=== PATIENT | female | born 1970 | race Caucasian/White ===

== ENCOUNTER 2018-05-06 10:21 | Emergency (ER) | payer BC ==
[2018-05-06] MEDS ORDERED: Phenazopyridine 200 MG Tab PO ONE (10:41)
--- NOTE | 2018-05-06 10:44 | EDM.PDOC ---
ED HPI GENERAL MEDICAL PROBLEM - General Chief Complaint: Genitourinary Problem Stated Complaint: UTI Time Seen by Provider: 05/06/18 10:24 Source of Information: Reports: Patient History Limitations: Reports: No Limitations - History of Present Illness INITIAL COMMENTS - FREE TEXT/NARRATIVE: HISTORY AND PHYSICAL: History of present illness: Patient is a 37-year-old female who presents to the ED today with concern of dysuria, urinary frequency x 2 days. Patient states she does have a history of UTI's. Patient states the pain of this is a 9 out of 10 which is unusual for her other urinary tract infections. Patient states she also has 9/10 abdominal pain and left-sided back pain. Patient states she feels as if she has had fever and chills but has not checked her temperature at home. Patient denies vaginal discharge, pain with intercourse, or abnormal vaginal bleeding, or new sexual partners. Patient denies fever, chills, cough. Denies headache, neck stiff ness, change in vision, syncope, or near syncope. Denies nausea, vomiting, abdominal pain, diarrhea, constipation. Has not noted any blood in urine or stool. Patient has been eating and drinking appropriately. Review of systems: As per history of present illness and below otherwise all systems reviewed and negative. Past medical history: As per history of present illness and as reviewed below otherwise noncontributory. Surgical history: As per history of present illness and as reviewed below otherwise noncontributory. Social history: See social history for further information Family history: As per history of present illness and as reviewed below otherwise noncontributory. Physical exam: General: Patient is alert, oriented, and in no acute distress. She is sitting comfortably on exam table. HEENT: Atraumatic, normocephalic, pupils equal and reactive bilaterally, negative for conjunctival pallor or scleral icterus, mucous membranes moist, TMs normal bilaterally, throat clear, neck supple, nontender, trachea midline. No drooling or trismus noted. No meningeal signs. No hot potato voice noted. Lungs: Clear to auscultation, breath sounds equal bilaterally, chest nontender. Heart: S1S2, regular rate and rhythm without overt murmur Abdomen: Moderate pain to palpation over the suprapubic region. Otherwise, soft , nondistended. Negative for masses or hepatosplenomegaly. Positive for costovertebral tenderness on the left. Pelvis: Stable nontender. Genitourinary: Deferred. Rectal: Deferred. Skin: Intact, warm, dry. No lesions or rashes noted. Extremities: Atraumatic, negative for cords or calf pain. Neurovascular unremarkable. Neuro: Awake, alert, oriented. Cranial nerves II through XII unremarkable. Cerebellum unremarkable. Motor and sensory unremarkable throughout. Exam nonfocal. Notes: Will do labs and imaging today. Abd/pelvic CT shows no hydronephrosis or obstructing renal calculi. Urinary bladder decompressed with bladder wall thickening likely related to decompress bladder and/or related to cystitis. No acute findings in the abdomen and pelvis. Small left lower lobe pulmonary nodules. Urine analysis does show signs of urinary tract infection. Along with patients left sided back pain, will treat for pyelonephritis. Patients remaining labs and vitals today are reassuring Discussed these findings with patient and the need for follow up with nodules in lungs. Offered patient admission but she does decline and will return as discussed. Supportive care measures were reviewed and discussed. Voices understanding and is agreeable to plan of care. Denies any further questions or concerns at this time. Diagnostics: UA, CBC, CMP, abd/pelvic CT, urine hcg Therapeutics: Pyridium, Saline, Toradol Prescription: Ciprofloxacin, Pyridium, [place] #10 Impression: Pyelonephritis Plan: 1. Take medication as prescribed. You can use ibuprofen or Tylenol as directed for pain and discomfort. 2. Follow-up with your primary care provider as discussed. Follow up with findings of nodule in lungs with your primary care provider. 3. Return to ED as needed and as discussed. Definitive disposition and diagnosis as appropriate pending reevaluation and review of above. Bladder Pain Score (Numeric/FACES): 7 - Related Data Allergies Allergy/AdvReac Type Severity Reaction Status Date / Time estradiol [From Estrace] Allergy Hypertensio Verified 05/06/18 10:34 n megestrol acetate Allergy Slurred Verified 05/06/18 10:34 [From Megace] Speech morphine Allergy Shortness Verified 05/06/18 10:34 of Breath Penicillins Allergy Rash Verified 05/06/18 10:34 pregabalin [From Lyrica] Allergy Shortness Verified 05/06/18 10:34 of Breath bananas Allergy Swelling Uncoded 05/06/18 10:34 kiwi Allergy Swelling Uncoded 05/06/18 10:34 Home Meds: Home Meds traZODone 1 tab PO DAILY 09/29/13 [History] Non-Formulary Medication [NF Drug] 4.5 mg PO DAILY 05/06/18 [History] Topiramate [Topamax] 100 mg PO BID 05/06/18 [History] ED ROS GENERAL - Review of Systems Review Of Systems: ROS reveals no pertinent complaints other than HPI. ED EXAM, RENAL/ - Physical Exam Exam: See Below (see dictation) Course - Vital Signs Last Recorded V/S: Last Vital Signs Temp 36.0 C 05/06/18 10:32 Pulse 97 05/06/18 10:32 Resp 18 05/06/18 10:32 BP 111/87 05/06/18 10:32 Pulse Ox 97 05/06/18 10:32 - Orders/Labs/Meds Orders: Active Orders 24 hr Category Date Time Status CULTURE URINE [RM] Stat Lab 05/06/18 10:23 Received HCG QUALITATIVE,URINE [URCHEM] Stat Lab 05/06/18 10:55 Ordered Labs: Laboratory Tests 05/06/18 05/06/18 05/06/18 Range/Units 10:23 11:03 11:03 WBC 5.10 (4.0-11.0) K/uL RBC 4.43 (4.30-5.90) M/uL Hgb 12.1 (12.0-16.0) g/dL Hct 38.1 (36.0-46.0) % MCV 86.0 (80.0-98.0) fL MCH 27.3 (27.0-32.0) pg MCHC 31.8 (31.0-37.0) g/dL RDW Std Deviation 42.7 (28.0-62.0) fl RDW Coeff of Wally 14 (11.0-15.0) % Plt Count 183 (150-400) K/uL MPV 12.60 H (7.40-12.00) fL Neut % (Auto) 57.9 (48.0-80.0) % Lymph % (Auto) 32.0 (16.0-40.0) % [place] % (Auto) 7.5 (0.0-15.0) % Eos % (Auto) 1.8 (0.0-7.0) % Baso % (Auto) 0.8 (0.0-1.5) % Neut # (Auto) 3.0 (1.4-5.7) K/uL Lymph # (Auto) 1.6 (0.6-2.4) K/uL [place] # (Auto) 0.4 (0.0-0.8) K/uL Eos # (Auto) 0.1 (0.0-0.7) K/uL Baso # (Auto) 0.0 (0.0-0.1) K/uL Nucleated RBC % 0.0 /100WBC Nucleated RBCs # 0 K/uL Sodium 142 (136-145) mmol/L Potassium 3.9 (3.5-5.1) mmol/L Chloride 109 H (98-107) mmol/L Carbon Dioxide 21.6 (21.0-32.0) mmol/L BUN 12 (7.0-18.0) mg/dL Creatinine 1.0 (0.6-1.0) mg/dL Est Cr Clr Drug Dosing 65.11 mL/min Estimated GFR (MDRD) 59.4 ml/min Glucose 96 (74-106) mg/dL Calcium 9.0 (8.5-10.1) mg/dL Total Bilirubin 0.4 (0.2-1.0) mg/dL AST 17 (15-37) IU/L ALT 23 (14-63) IU/L Alkaline Phosphatase 70 (46-116) U/L Total Protein 7.5 (6.4-8.2) g/dL Albumin 3.8 (3.4-5.0) g/dL Globulin 3.7 (2.6-4.0) g/dL Albumin/Globulin Ratio 1.0 (0.9-1.6) Urine Color YELLOW Urine Appearance CLEAR Urine pH 7.0 (5.0-8.0) Ur Specific [place] <= 1.005 (1.001-1.035) Urine Protein NEGATIVE (NEGATIVE) mg/dL Urine Glucose (UA) NEGATIVE (NEGATIVE) mg/dL Urine Ketones NEGATIVE (NEGATIVE) mg/dL Urine Occult Blood NEGATIVE (NEGATIVE) Urine Nitrite POSITIVE H (NEGATIVE) Urine Bilirubin NEGATIVE (NEGATIVE) Urine Urobilinogen 0.2 (<2.0) EU/dL Ur Leukocyte Esterase TRACE H (NEGATIVE) Urine RBC 1-2 (0-2/HPF) Urine WBC 1-2 (0-5/HPF) Ur Epithelial Cells RARE (NONE-FEW) Urine Bacteria FEW (NEGATIVE) Meds: Medications Discontinued Medications Generic Name Dose Route Start Last Admin Trade Name Dot PRN Reason Stop Dose Admin Sodium Chloride 1,000 mls @ 999 mls/hr 05/06/18 10:55 05/06/18 11:11 Normal Saline IV 05/06/18 11:55 999 mls/hr STAT ONE Administration Ketorolac Tromethamine 30 mg 05/06/18 10:55 05/06/18 11:10 Toradol IVPUSH 05/06/18 10:56 30 mg ONETIME ONE Administration Phenazopyridine HCl 200 mg 05/06/18 10:41 05/06/18 10:46 Pyridium PO 05/06/18 10:42 200 mg ONETIME ONE Administration Departure - Departure Time of Disposition: 12:37 Disposition: Home, Self-Care 01 Clinical Impression: Pyelonephritis - Discharge Information Instructions: Urinary Tract Infection, Adult, [id number] Referrals: Lauro Rosa MD [Primary Care Provider] - Forms: ED Department Discharge Additional Instructions: The following information is given to patients seen in the emergency department who are being discharged to home. This information is to outline your options for follow-up care. We provide all patients seen in our emergency department with a follow-up referral. The need for follow-up, as well as the timing and circumstances, are variable depending upon the specifics of your emergency department visit. If you don't have a primary care physician on staff, we will provide you with a referral. We always advise you to contact your personal physician following an emergency department visit to inform them of the circumstance of the visit and for follow-up with them and/or the need for any referrals to a consulting specialist. The emergency department will also refer you to a specialist when appropriate. This referral assures that you have the opportunity for follow-up care with a specialist. All of these measure are taken in an effort to provide you with optimal care, which includes your follow-up. Under all circumstances we always encourage you to contact your private physician who remains a resource for coordinating your care. When calling for follow-up care, please make the office aware that this follow-up is from your recent emergency room visit. If for any reason you are refused follow-up, please contact the [facility] Emergency Department at and asked to speak to the emergency department charge nurse. [facility] [address] [place] [address] [id number] 1. Take medication as prescribed. You can use ibuprofen or Tylenol as directed for pain and discomfort. 2. Follow-up with your primary care provider as discussed. Follow up with findings of nodule in lungs with your primary care provider. 3. Return to ED as needed and as discussed. - My Orders Last 24 Hours: My Active Orders 05/06/18 10:23 CULTURE URINE [RM] Stat 05/06/18 10:55 HCG QUALITATIVE,URINE [URCHEM] Stat - Assessment/Plan Last 24 Hours: My Active Orders 05/06/18 10:23 CULTURE URINE [RM] Stat 05/06/18 10:55 HCG QUALITATIVE,URINE [URCHEM] Stat
[2018-05-06] MEDS ORDERED: Ketorolac 30 MG/ML SDV IVPUSH ONE (10:55)
[2018-05-06] MEDS ORDERED: Sodium Chloride 0.9% 1,000 ML IV ONE (10:55)
--- NOTE | 2018-05-06 12:24 | CT ---
Left flank pain. Noncontrast CT abdomen and pelvis coronal sagittal re-formatted images obtained. COMPARISON: No comparison studies are available. Findings: The heart size is normal. No pericardial effusion. No pleural effusion. Subpleural 3 mm left lower lobe pulmonary nodule series 201 image 8. 2 mm left lower lobe nodule image 15. The unenhanced liver spleen pancreas adrenal glands are unremarkable. Cholecystectomy. Intra extra extrahepatic biliary dilatation which can be seen post cholecystectomy. Normal caliber abdominal aorta. Cortical scarring in the right upper kidney. There is no hydronephrosis seen. Right upper pole calcifications. Urinary bladder decompressed with bladder wall thickening. Abundant stool in the colon. Appendectomy change. No inflammatory change. Prior ventral hernia repair. There is diastasis rectus abdominus muscle with slight bulging of the abdominal wall. Periumbilical fat containing hernia. No suspicious bony lesions. Impression : 1. No hydronephrosis or obstructing renal calculi. Urinary bladder decompressed with bladder wall thickening which likely is related to decompressed bladder however could be related to cystitis as well and can be correlated clinically. 2. No acute findings in the abdomen or pelvis. 3. Small left lower lobe pulmonary nodules. Follow-up per Fleischner society guidelines. Please note that all CT scans at this facility use dose modulation, iterative reconstruction, and/or weight-based dosing when appropriate to reduce radiation dose to as low as reasonably achievable. Dictated by Coreen Hsieh MD @ May 06 2018 12:14PM Signed by Dr. Coreen Hsieh @ May 06 2018 12:23PM
[2018-05-06 14:39] VITALS: BP 103/48
== END 2018-05-06 13:04 | disposition home or self-care (01) ==
LOC: MW.ED 10:21
DX: N12 Tubulo-interstitial nephritis, not specified as acute or chronic (principal); Z88.8 Allergy status to other drugs, medicaments and biological substances; Z88.5 Allergy status to narcotic agent; Z88.0 Allergy status to penicillin; Z91.018 Allergy to other foods; Z79.899 Other long term (current) drug therapy
CPT/HCPCS: 36415; 74176; 80053; 81001; 81025; 85025; 87086; 96361; 96374; 99284; A9270; J1885; J7040

== ENCOUNTER 2022-08-29 12:16 | Day surgery (SDC) | payer BC ==
[~2022-08-29 12:16] MED LIST: Lactated Ringers 1,000 ML IV SCH
[2022-08-29] MEDS ORDERED: Propofol 200 MG/20 ML SDV ONE ×2 (13:07→13:37)
[2022-08-29] MEDS ORDERED: Lidocaine 2% 5 ML SDV ONE (13:07)
[2022-08-29] MEDS ORDERED: Lactated Ringers 1,000 ML IV SCH (14:00)
[2022-08-29 14:42] VITALS: BP 120/67; PULSE 49
== END 2022-08-29 14:30 | disposition home or self-care (01) ==
LOC: MW.SDS 12:16
PROVIDERS: ATTEND Surgery
DX: D50.9 Iron deficiency anemia, unspecified (principal); K29.50 Unspecified chronic gastritis without bleeding; F41.9 Anxiety disorder, unspecified; F32.A Depression, unspecified; M79.7 Fibromyalgia; G43.719 Chronic migraine without aura, intractable, without status migrainosus; E78.00 Pure hypercholesterolemia, unspecified; E55.9 Vitamin D deficiency, unspecified; Z88.0 Allergy status to penicillin; Z88.5 Allergy status to narcotic agent; Z88.8 Allergy status to other drugs, medicaments and biological substances; Z79.899 Other long term (current) drug therapy; Z90.710 Acquired absence of both cervix and uterus; Z86.2 Personal history of diseases of the blood and blood-forming organs and certain disorders involving the immune mechanism; Z78.9 Other specified health status; Z90.49 Acquired absence of other specified parts of digestive tract
CPT/HCPCS: 43239; 45378; J2704; J7120; 00813; J3490

== ENCOUNTER 2024-10-21 15:44 | Emergency (ER) | payer BC ==
[2024-10-21] MEDS: Ketorolac 30 MG/ML SDV IM ONE (16:24)
[2024-10-21 17:32] VITALS: BP 101/55; PULSE 65
== END 2024-10-21 17:36 | disposition home or self-care (01) ==
LOC: MW.ED 15:44
DX: M54.41 Lumbago with sciatica, right side (principal); Z88.0 Allergy status to penicillin; Z88.8 Allergy status to other drugs, medicaments and biological substances; Z91.018 Allergy to other foods; Z79.899 Other long term (current) drug therapy; Z90.49 Acquired absence of other specified parts of digestive tract; Z90.710 Acquired absence of both cervix and uterus
CPT/HCPCS: 96372; 99283; A9270; J1885